=== PATIENT | male | born 1970 | race African-American/Black ===

== ENCOUNTER 2021-07-06 11:34 | Emergency (ER) | payer MEDICAID ==
[~2021-07-06] VITALS: Ht 185.4 cm; Wt 86.0 kg
[2021-07-06] MEDS ORDERED: HYDROCODONE/ACETAMINOPHEN 5/325MG TABLET PO ONE (12:15)
[2021-07-06 12:16] VITALS: BP 154/85
[2021-07-06] MEDS ORDERED: LIDOCAINE 5% PATCH TOP SCH (13:45)
[2021-07-06] MEDS ORDERED: KETOROLAC 60MG/2ML VIAL IM ONE (13:45)
[2021-07-06] MEDS ORDERED: NAPR-681 MT (14:38)
[2021-07-06] MEDS ORDERED: LIDO1ADH5 TP (14:38)
== END 2021-07-06 14:32 | disposition left against medical advice (07) ==
LOC: ER 11:34
DX: S22.32XA Fracture of one rib, left side, initial encounter for closed fracture (principal); S06.890A Other specified intracranial injury without loss of consciousness, initial encounter; Y93.89 Activity, other specified; Y07.59 Other non-family member, perpetrator of maltreatment and neglect; Y08.02XA Assault by strike by baseball bat, initial encounter; Y92.018 Other place in single-family (private) house as the place of occurrence of the external cause
CPT/HCPCS: 71101; 99284

== ENCOUNTER 2021-07-08 09:02 | Emergency (ER) | payer MEDICAID ==
[~2021-07-08] VITALS: Ht 185.4 cm; Wt 86.0 kg
[~2021-07-08 09:02] MED LIST: LIDO1ADH5 TP; NAPR-681 MT
[2021-07-08 09:47] VITALS: BP 149/93
[2021-07-08 10:40] LABS: BASOPHILS % 0.6 % (0.0-2.0); EOSINOPHILS % 1.8 % (0.0-5.0); HEMATOCRIT. 41.7 % (42.0-52.0); HEMOGLOBIN. 14.7 g/dL (14.0-18.0); LYMPHOCYTES % 33.2 % (20.0-50.0); MEAN CORPUSCULAR HEMOGLOBIN 32.9 pg (28.0-32.0); MEAN CORPUSCULAR VOLUME 93.6 fL (80.0-94.0); MEAN PLATELET VOLUME 7.5 fl (7.4-10.4); MONOCYTES % 6.4 % (2.0-8.0); PLATELET 423 x1000/uL (130-400); RED BLOOD CELL COUNT 4.46 mill/uL (4.7-6.1); RED CELL DISTRIBUTION WIDTH 14.3 % (11.6-14.6)
[2021-07-08 10:50] LABS: CHLORIDE 104 mEq/L (98-107)
[2021-07-08] MEDS ORDERED: GADOTERATE MEGLUMINE 5 MMOL/10 ML VIAL IV ONE (14:15)
== END 2021-07-08 14:37 | disposition home or self-care (01) ==
LOC: ER 09:02
DX: Z04.89 Encounter for examination and observation for other specified reasons (principal)
CPT/HCPCS: 36415; 70544; 70553; 80048; 85025; 99284; A9577